=== PATIENT | female | born 1975 | race African-American/Black ===

== ENCOUNTER → 2024-06-26 11:52 | Outpatient (CLI) | payer OTHER, SELFPAY ==
[2024-06-26 12:50] LABS: Add Manual Diff / Slide Review NO; Basophils Absolute Auto 100 /uL (0-100); Eosinophils Absolute Auto 300 /uL (0-450); Eosinophils Percent Auto 2.9 % (2-4); Hemoglobin 11.8 g/dL (12.0-16.0); Lymphocytes Absolute Auto 1900 /uL (1100-4500); Lymphocytes Percent Auto 19.3 % (25-40); Mean Corpuscular HGB Conc 33.7 % (30-36); Mean Corpuscular Hemoglobin 31.9 PG (26-34); Mean Corpuscular Volume 94.9 fL (80-100); Monocytes Absolute Auto 1200 /uL (0-900); Neutrophils Absolute Auto 6300 /uL (1500-7000); Neutrophils Percent Auto 64.8 % (50-75); Platelet Count 521 X10^3/uL (150-400); Red Blood Cell Count 3.69 X10^6/uL (4.0-5.2); Red Cell Distribution Width 14.6 % (11.6-14.8); White Blood Cell Count 9.7 X10^3/uL (4.5-11.0)
== END ==
PROVIDERS: PCP Family Medicine; Referring Provider Obstetrics & Gynecology; Visit Provider Obstetrics & Gynecology
DX: N93.9 Abnormal uterine and vaginal bleeding, unspecified (principal)
CPT/HCPCS: 36415; 85025

== ENCOUNTER 2024-07-18 10:50 | Day surgery (SDC) | payer OTHER, SELFPAY ==
[2024-07-16 13:08] VITALS: BMI 32.9
--- NOTE | 2024-07-18 | PATH_ITS ---
[facility] Accession Number: [id number] No. of containers..01 Tissue . 01 Material submitted: . endometrium - ENDOMETRIAL CURETTINGS . 01 Diagnosis: ENDOMETRIUM, CURETTINGS: Polypoid fragments of benign, weakly proliferative to inactive endometrium with focal breakdown/shedding, and changes compatible with exogenous hormonal/progestin effect. Negative for endometrial intraepithelial neoplasia and malignancy. [facility] 07/23/2024 1541 Local . 01 Electronically signed: . Maliha James MD, Pathologist NPI- [id number] . 01 Gross description: . Received in formalin, labeled with two patient identifiers and endometrial curettings, are multiple whitley to brown soft tissue fragments aggregating to 2.8 x 1.8 x 0.7 cm. Filtered and submitted in cassette A1. ([id number]) /FRR 07/19/2024 1300 Local . 01 Pathologist provided ICD-10: N93.9, Z30.430 . 01 CPT . 952706 Specimen Comment: A courtesy copy of this report has been sent to [facility] Pathology Performed at: [address] [address], [place], [place] [id number] MD Tom Dela Cruz MD Phone: [phone]
[2024-07-18 11:19] VITALS: BMI 32.9
--- NOTE | 2024-07-18 11:45 | PM.PREOP ---
Pre-operative Note Interval Note History & Physical reviewed/Exam performed by Physician: No Changes to H&P: No H&P completed within 30 days and has changed as indicated here:: 06/26/24 ASA Class (for procedural sedation): II
[2024-07-18 11:47] LABS: Add Manual Diff / Slide Review NO; Basophils Absolute Auto 100 /uL (0-100); Basophils Percent Auto 1.2 % (0-2); Eosinophils Absolute Auto 300 /uL (0-450); Eosinophils Percent Auto 4.5 % (2-4); Hematocrit 32.1 % (36-46); Hemoglobin 10.8 g/dL (12.0-16.0); Lymphocytes Absolute Auto 1500 /uL (1100-4500); Lymphocytes Percent Auto 19.6 % (25-40); Mean Corpuscular HGB Conc 33.7 % (30-36); Mean Corpuscular Hemoglobin 31.6 PG (26-34); Mean Corpuscular Volume 93.6 fL (80-100); Monocytes Absolute Auto 800 /uL (0-900); Monocytes Percent Auto 9.9 % (3-14); Neutrophils Absolute Auto 5000 /uL (1500-7000); Neutrophils Percent Auto 64.8 % (50-75); Platelet Count 388 X10^3/uL (150-400); Red Blood Cell Count 3.43 X10^6/uL (4.0-5.2); Red Cell Distribution Width 14.7 % (11.6-14.8); White Blood Cell Count 7.8 X10^3/uL (4.5-11.0)
[2024-07-18 11:52] VITALS: BP 127/84; PULSE 81; RESP 18; TEMP 36.6; O2SAT 100
[2024-07-18] MEDS: ACETAMINOPHEN IV 1,000 MG/100 ML VIAL 400 MG IV (13:21)
--- NOTE | 2024-07-18 13:23 | SUR.OPER ---
Lithotomy on padded OR bed, head on pillow, arms secured on padded arm boards at <90 degrees abduction. Legs secured in padded yellow fins stirrups.
[2024-07-18 13:59] VITALS: BP 98/62; PULSE 90; RESP 14; TEMP 36.3; O2SAT 95
[2024-07-18 14:04] VITALS: BP 104/71; PULSE 88; RESP 14; O2SAT 94
[2024-07-18 14:10] VITALS: BP 103/70; PULSE 87; RESP 14; O2SAT 96
[2024-07-18] MEDS: HYDROMORPHONE 1 MG INJ IV ×4 (14:19→14:32)
[2024-07-18] MEDS: OXYCODONE IR 5 MG TABLET PO (14:21)
[2024-07-18] MEDS: LACTATED RINGERS 1,000 ML 21 ML IV (14:24)
[2024-07-18 14:26] VITALS: BP 105/60; PULSE 84; RESP 13; O2SAT 96
[2024-07-18 14:46] VITALS: BP 118/76; PULSE 78; RESP 14; O2SAT 97
--- NOTE | 2024-07-18 14:48 | PM.GYNOP.1 ---
Operative Date/Time/Diagnoses Date of procedure: 07/18/24 Time of procedure: 13:50 Pre-op diagnosis: AUB Post-op diagnosis: same Procedure & Clinicians Procedure: Procedures Operation Date: 07/18/24 12:30 Actual Procedure Side Surgeon roland SHARMA, HYSTEROSCOPY, D+C, REMOVAL OF ABNORMAL TISSUE, MIRENA IUD PLACEMENT Nalini Obrien MD Indications: AUB refractory to conservative medical management Surgeon: Nalini Obrien Anesthesia Type: General Operative Notes Findings: normal external female genitalia, perineum, anus, vagina and cervix intrauterine cavity with diffuse fluffy endometrium, no distinct polyp or fibroid appreciable with noted moderate field obscuration secondary to active menstrual bleeding bilateral ostia visualized without difficulty Closure Type: not applicable Specimen(s): endometrial curettings Applied: implant(s) (mirena intrauterine device ) Procedure in detail: Pt was taken to the operating room, transferred to OR table and anesthesia was induced with placement of ETT.? Pt had her legs placed in Jose D stirrups and an exam under anesthesia was performed. The patient was prepped and draped in a sterile fashion.? A time out was performed. ?The bladder was emptied via straight catheter in sterile fashion.? A sterile speculum was inserted into the vagina.? The cervix was visualized and grasped anteriorly using a single tooth tenaculum.? The uterus sounded to 10cm and the cervical os was serially dilated using Matos dilators up to 17f to allow for passage of the hysteroscope.? The 5mm 0 degree hysteroscope was then inserted into the uterus with findings as noted.? The hysteroscope was removed and the uterus was sharply curetted until a gritty texture was noted throughout, endometrial curettings passed off the field for permanent study. The mirena IUD obtained from office supply was placed per history card clerk instructions and strings trimmed to 3cm.? The tenaculum was removed and hemostasis was noted at insertion sites.? The speculum was removed and hemostasis was again noted to be excellent.? The patient then had her legs taken out of stirrups.? The patient tolerated the procedure well and without difficulty.? The patient was awakened from anesthesia and taken to PACU in stable condition. Complications: none Post-operative Condition: stable Disposition: PACU Plan for aftercare: dc to home routine postop f/u as scheduled
== END 2024-07-18 14:58 | disposition home or self-care (01) ==
PROVIDERS: PCP Family Medicine; Referring Provider Obstetrics & Gynecology; Visit Provider Obstetrics & Gynecology
PROC: (CPT 57410; principal; 2024-07-18 12:30)
DX: N84.0 Polyp of corpus uteri (principal); N93.9 Abnormal uterine and vaginal bleeding, unspecified; Z30.430 Encounter for insertion of intrauterine contraceptive device
CPT/HCPCS: 58558; 58300; 82962; 85025; 86850; 86900; 86901; J0136; J0330; J1100; J1170; J2405; J2704; J3010; J7298

== ENCOUNTER → 2024-07-30 16:03 | Outpatient (CLI) | payer OTHER, SELFPAY ==
[2024-08-01 11:36] LABS: Candida species Negative (Negative); Gardnerella vaginalis Negative (Negative); Trichomoas vaginalis Negative (Negative)
== END ==
PROVIDERS: PCP Family Medicine; Visit Provider Obstetrics & Gynecology
DX: N89.8 Other specified noninflammatory disorders of vagina (principal)
CPT/HCPCS: 87480; 87510; 87660